=== PATIENT | male | born 2000 | race Caucasian/White ===

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

== ENCOUNTER 2022-10-18 17:12 | Emergency (ER) | payer OTHER ==
[~2022-10-18] VITALS: Ht 172.7 cm; Wt 83.0 kg
[~2022-10-18 17:12] MED LIST: ARIP20TA PO; ESOM40CA PO; HYDR5TAB8 PO; SERT-438 PO
[2022-10-18] MEDS ORDERED: CHLO50TA61 PO (17:21)
[2022-10-18] MEDS ORDERED: TOPI100T37 PO (17:21)
[2022-10-18] MEDS ORDERED: CHLO100T42 PO (17:21)
[2022-10-18] MEDS ORDERED: MELA5TAB40 PO (17:21)
[2022-10-18] MEDS ORDERED: DIPH-1080 PO (17:21)
[2022-10-18] MEDS ORDERED: ZOLP-162 PO (17:21)
[2022-10-18 20:21] VITALS: BP 133/85; PULSE 100; RESP 18; TEMP 98.1
== END 2022-10-18 20:25 | disposition home or self-care (01) ==
LOC: EMS 17:12
DX: G47.00 Insomnia, unspecified (principal); F84.0 Autistic disorder; F41.9 Anxiety disorder, unspecified; F31.9 Bipolar disorder, unspecified; F20.9 Schizophrenia, unspecified; Z88.8 Allergy status to other drugs, medicaments and biological substances
CPT/HCPCS: 99282; Z7502

== ENCOUNTER 2022-11-04 11:22 | Emergency (ER) | payer OTHER ==
[~2022-11-04] VITALS: Ht 175.3 cm; Wt 79.5 kg
[~2022-11-04 11:22] MED LIST changes: -ARIP20TA PO; +CHLO100T42 PO; +CHLO50TA61 PO; +DIPH-1080 PO; -ESOM40CA PO; -HYDR5TAB8 PO; +MELA5TAB40 PO; -SERT-438 PO; +TOPI100T37 PO; +ZOLP-162 PO
[2022-11-04] MEDS ORDERED: DIVA500T53 PO (11:45)
[2022-11-04] MEDS ORDERED: GUAN1TAB20 PO (11:45)
[2022-11-04] MEDS ORDERED: LITH300C3 PO (11:45)
[2022-11-04 14:23] LABS: BASOPHILS % (AUTO) 0.2 % (0.0-2.0); EOSINOPHILS % (AUTO) 3.6 % (1.0-6.0); HEMATOCRIT 46.3 % (41-53); HEMOGLOBIN 15.6 g/dL (13.5-17.5); LYMPHOCYTES % (AUTO) 12.5 % (22.0-44.0); MEAN CORPUSCULAR HEMOGLOBIN 30.1 pg (26.0-34.0); MEAN CORPUSCULAR HGB CONC 33.6 G/dL (31.0-37.0); MEAN CORPUSCULAR VOLUME 90 fL (80-100); MONOCYTES # (AUTO) 0.8 K/uL (0.1-1.0); MONOCYTES % (AUTO) 9.4 % (2.0-9.0); NEUTROPHILS # (AUTO) 6.1 K/uL (1.8-7.7); NEUTROPHILS % (AUTO) 74.3 % (40.0-70.0); PLATELET COUNT (AUTO) 158 K/uL (150-450); RED BLOOD CELL COUNT(AUTO) 5.17 MIL/uL (4.50-5.90); RED CELL DISTRIBUTION WIDTH 12.6 % (11.5-14.5); WHITE BLOOD COUNT (AUTO) 8.2 K/uL (4.5-11.0)
[2022-11-04 14:38] LABS: ANION GAP 10 mmol/L (8-16); CALCIUM, TOTAL 9.4 mg/dL (8.8-10.5); CARBON DIOXIDE 27 mmol/L (22-29); CHLORIDE 103 mmol/L (98-107); CREATININE 0.98 mg/dL (0.60-1.30); GLOMERULAR FILTR. RATE CALC > 60 mL/min (>60); GLUCOSE,RANDOM 114 mg/dL (70-110); POTASSIUM 3.7 mmol/L (3.5-5.1); SODIUM SERUM 140 mmol/L (136-145); UREA NITROGEN, BLOOD 14 mg/dL (7-18)
[2022-11-04 14:52] LABS: ALANINE AMINOTRANSFERASE 11 U/L (12-78); ALBUMIN 3.9 g/dL (3.4-5.0); ALKALINE PHOSPHATASE 80 U/L (46-116); ASPARTATE AMINOTRANSFERASE 14 U/L (15-37); BILIRUBIN,TOTAL 0.4 mg/dL (0.1-1.0); THYROID STIMULATING HORMONE 1.62 uIU/mL (0.36-3.74); TOTAL PROTEIN, SERUM 6.8 g/dL (6.4-8.2); VALPROIC ACID 87 mcg/mL (50-100)
[2022-11-04 14:56] LABS: LITHIUM 0.59 mmol/L (0.60-1.20)
[2022-11-04 14:57] LABS: ALCOHOL, BLOOD (SERUM) < 3 mg/dL (0-10)
[2022-11-04 15:28] VITALS: BP 130/81; PULSE 135; RESP 19; TEMP 98
== END 2022-11-04 15:56 | disposition home or self-care (01) ==
LOC: EMS 11:27
DX: F41.9 Anxiety disorder, unspecified (principal); F84.0 Autistic disorder; F20.9 Schizophrenia, unspecified; F31.9 Bipolar disorder, unspecified; Z88.8 Allergy status to other drugs, medicaments and biological substances
CPT/HCPCS: 99283; 80053; 80164; 80178; 84443; 85025; 36415; G0480